=== PATIENT | male | born 1960 | race Two or more races ===

== ENCOUNTER → 2022-03-03 12:32 | Outpatient (BNVA) | payer MEDICAID, SELFPAY | PROVIDERS: PCP Registered Nurse Community Health; Visit Provider Surgery Vascular Surgery | DX: I73.9 Peripheral vascular disease, unspecified (principal); I83.11 Varicose veins of right lower extremity with inflammation | CPT/HCPCS: 99202 ==

== ENCOUNTER → 2022-03-16 13:19 | Outpatient (BNVA) | payer MEDICAID, SELFPAY | PROVIDERS: PCP Registered Nurse Community Health; Visit Provider Surgery | DX: K42.9 Umbilical hernia without obstruction or gangrene (principal) | CPT/HCPCS: 99202 ==

== ENCOUNTER → 2022-03-29 14:11 | Outpatient (BNVA) | payer MEDICAID, SELFPAY | PROVIDERS: PCP Registered Nurse Community Health; Referring Provider Registered Nurse Community Health; Visit Provider Nurse Practitioner | DX: Z01.818 Encounter for other preprocedural examination (principal) | CPT/HCPCS: 99202; 99212 ==

== ENCOUNTER → 2022-04-12 06:30 | Day surgery (SDC) | payer MEDICAID, SELFPAY ==
[2022-04-06 12:58] VITALS: BMI 29.0
--- NOTE | 2022-04-12 | ECG_ITS ---
Test Reason : PRE OP Blood Pressure : / mmHG Vent. Rate : 069 BPM Atrial Rate : 069 BPM P-R Int : 174 ms QRS Dur : 094 ms QT Int : 452 ms P-R-T Axes : 055 -22 036 degrees QTc Int : 484 ms Normal sinus rhythm Incomplete right bundle branch block Borderline ECG No previous ECGs available Referred By: Zion Pizarro Electronically Signed By:PHONG MCLAUGHLIN
[2022-04-12 07:52] VITALS: BP 124/80; PULSE 71; RESP 18; TEMP 36.2; O2SAT 95; BMI 27.4
[2022-04-12 08:05] VITALS: BMI 27.4
[2022-04-12 08:25] LABS: Amphetamine Screen Urine Not Detected (Not Detect); Barbiturates, Urine Not Detected (Not Detect); Benzodiazepines Screen Urine Not Detected (Not Detect); Cannabinoid Screen Urine Not Detected (Not Detect); Cocaine Screen Urine Not Detected (Not Detect); Fentanyl, urine POSITIVE (Not Detect); Opiate Screen Urine POSITIVE (Not Detect); Phencyclidine Screen Urine Not Detected (Not Detect)
[2022-04-12 08:48] LABS: Troponin-I High Sensitivity < 3.5 ng/L (<3.5-35.0)
== END ==
PROVIDERS: Anesthesiology; Visit Provider Surgery
DX: K42.9 Umbilical hernia without obstruction or gangrene (principal); Z53.8 Procedure and treatment not carried out for other reasons
CPT/HCPCS: 36415; 80307; 84484; 93005; J2795

== ENCOUNTER 2022-04-21 12:20 | Outpatient (REF) | payer MEDICAID, SELFPAY ==
--- NOTE | ~2022-04-21 | US_ITS ---
EXAMINATION: US JESSEE COMPLETE CLINICAL INFORMATION: PVD COMPARISON: Arterial duplex Doppler examination of same day. TECHNIQUE: Ankle brachial index FINDINGS: The right brachial artery has a systolic pressure of 101 mmHg with left brachial artery pressure being 111 mmHg. There are normal bilateral ankle waveforms present. Right posterior tibial artery pressure is 139 mmHg corresponding to an JESSEE of 1.25. The right dorsalis pedis pressure is 118 mmHg corresponding to an JESSEE of 1.06. Left posterior tibial artery pressure is 140 which corresponds to an JESSEE of 1.26. Dorsalis pedis artery pressure is 109 corresponding to a JESSEE of 0.98. US/US JESSEE complete IMPRESSION: Normal bilateral leg ABIs.
--- NOTE | ~2022-04-21 | US_ITS ---
EXAMINATION: US ARTERIAL DUPLEX LOWER EXTREMITY, BILATERAL CLINICAL INFORMATION: PVD COMPARISON: None TECHNIQUE: Real-time ultrasound and Doppler techniques (integrating B-mode 2D vascular images, Doppler spectral analysis and color flow Doppler imaging) were utilized to interrogate the bilateral lower extremities. FINDINGS: RIGHT LEG: Common Femoral Artery: Peak systolic velocity is 147 cm/s. There is a triphasic waveform present. Profunda Femoral Artery: Peak systolic velocity is 86 cm/s with a triphasic waveform. Proximal Superficial Femoral Artery: Peak systolic velocity is 135 cm/s with a triphasic waveform. MID SUPERFICIAL FEMORAL ARTERY: Peak systolic velocity is 115 cm/s with a triphasic waveform. Distal Superficial Femoral Artery: Peak systolic velocity measures 90 cm/s with a triphasic waveform. Popliteal Artery: Peak systolic velocity 79 cm/s with a triphasic waveform. Peroneal Artery: Peak systolic velocity is 98 cm/s with a monophasic waveform. Posterior Tibial Artery: Peak systolic velocity is 82 cm/s with a monophasic waveform. LEFT LOWER EXTREMITY: Common Femoral Artery: Peak systolic velocity is 153 cm/s with a triphasic waveform. Profunda Femoral Artery: Peak systolic velocity 75 cm/s with a triphasic waveform. Proximal Superficial Femoral Artery: Peak systolic velocity is 123 cm/s with a triphasic waveform. Mid Superficial Femoral Artery: Peak systolic velocity is 109 cm/s with a triphasic waveform. Distal Superficial Femoral Artery: Peak soft velocity of 94 cm/s with a triphasic waveform. Popliteal Artery: Peak systolic velocity of 90 cm/s with a triphasic waveform. Peroneal Artery: Peak systolic velocity of 119 cm/s with monophasic waveform. Posterior Tibial Artery: Peak systolic velocity of 85 cm/s with a monophasic waveform. US/US arterial duplex LE BI IMPRESSION: No significant plaque is identified and no regions of elevated peak systolic velocity. On the provided imaging, there is question of monophasic waveforms in the calf arteries however, this may be artifactual in nature with the visual appearance of the vessels and lack of velocity elevations distal to possible stenoses. There are normal ABIs present.
== END 2022-04-21 12:21 | disposition home or self-care (01) ==
LOC: HO.US 12:20
PROVIDERS: Visit Provider Surgery Vascular Surgery
DX: I73.9 Peripheral vascular disease, unspecified (principal)
CPT/HCPCS: 93923; 93925

== ENCOUNTER 2023-01-02 09:55 | Outpatient (REF) | payer MEDICAID, SELFPAY | END 2023-01-02 09:56 | disposition home or self-care (01) | LOC: HO.SH 09:55 | PROVIDERS: Visit Provider Registered Nurse | DX: Z01.118 Encounter for examination of ears and hearing with other abnormal findings (principal); H90.41 Sensorineural hearing loss, unilateral, right ear, with unrestricted hearing on the contralateral side | CPT/HCPCS: 92557; 92567 ==

== ENCOUNTER 2023-01-21 01:14 | Emergency (ER) | payer MEDICAID, SELFPAY ==
--- NOTE | ~2023-01-21 | XR_ITS ---
EXAMINATION: XR CHEST CLINICAL INFORMATION: Hypoxia COMPARISON: 03/07/2012 TECHNIQUE: 2 views of the chest were obtained. FINDINGS: Lung volumes are symmetric. Right-sided pleural thickening is suspected along with biapical scarring. No dense focal consolidation is seen. There is interstitial prominence bilaterally which may reflect vascular congestion and mild interstitial edema. No evidence of pneumothorax. The cardiomediastinal contour is unremarkable. No acute osseous findings are seen. XR/XR chest 2V IMPRESSION: Bilateral interstitial prominence suggesting congestion and mild interstitial edema. No dense focal consolidation. Right-sided pleural thickening suspected along with biapical scarring.
[2023-01-21 01:23] VITALS: BP 108/62; BP 109/67; PULSE 64; PULSE 74; RESP 14; TEMP 36.8; O2SAT 100; O2SAT 98; BMI 28.7
--- OUTSIDE RECORDS SUMMARY | 2023-01-21 01:37 | XMS_ITS | Continuity of Care Document ---
Author Name Unknown Organization [facility] Address [address] [place] [id number] Care Team Providers Care Darkroom Worker Name Role Phone Not on Staff, PCP Primary Care Physician Unavail able Encounter [facility] Date(s): 01/25/21 - 02/24/21 [facility] [address] [place] [id number] Allergies, Adverse Reactions, Alerts Substance Reaction Severity Status NKA Active Immunizations Given and Recorded Vaccine Date Status Refusal Reason influenza virus vaccine, inactivated 1 10/29/12 Gi usha Influenza Vaccine (oldterm) 2 08/30/07 Given tetanus-diphtheria toxoids (Td) 3 08/30/07 Given 1Admin Note: VIS dated 02/20/12 2Admin Note: VIS given in Mongolian 3Admin Note: VIS given in Mongolian Medications Cane See Instructions, 1, 0, 0, 10/24/07 10:24:11, USE FOR WALKING, GAIT DISTURBANCE, LEFT LEG PAIN, ADSOPPTHS Start Date: 10/24/07 Status: Ordered fluoxetine 20 mg oral capsule 1 capsule = 20 mg, By Mouth, Daily, # 30 capsule, 11 Refills, Maintenance, 12/04/14 14:32:12, Capsule, 1 capsule By Mouth Daily Start Date: 12/04/14 Status: Ordered Mapap 650mg, 0 Refills, Maintenance, 05/29/14 13:17:46 Start Date: 05/29/14 Status: Ordered meloxicam 15 mg oral tablet 1 tablet = 15 mg, By Mouth, Daily, For joint and back pain, # 30 tablet, 2 Refills, Maintenance, 12/04/14 14:34:19, Tablet, 1 tablet By Mouth Daily,x30 days,Instr:For joint and back pain Start Date: 12/04/14 Stop Date: 03/04/15 Status: Ordered NuLYTELY Lemon [place] oral powder for reconstitution 240 mL, By Mouth, Every 10 minutes, # 1 each, 0 Refills, Maintenance, 05/29/14 13:35:10, REC Powder, 240 mL By Mouth Every 10 minutes Start Date: 05/29/14 Status: Ordered Pain Reliever Plus 2 tablet, By Mouth, 3 times a day, PRN Pain , Mild, 500mg, 0 Refills, Maintenance, 05/29/14 13:18:18 Start Date: 05/29/14 Status: Ordered paroxetine 20 mg oral tablet 1 tablet = 20 mg, By Mouth, Daily, 0 Refills, Maintenance, 05/29/14 13:19:49 Start Date: 05/29/14 Status: Ordered paroxetine 30 mg oral tablet 1 tablet = 30 mg, By Mouth, Daily, 0 Refills, Maintenance, 05/29/14 13:19:15 Start Date: 05/29/14 Status: Ordered quetiapine 25 mg oral tablet 1 tablet = 25 mg, By Mouth, 2 times a day, 0 Refills, Maintenance, 05/29/14 13:20:25 Start Date: 05/29/14 Status: Ordered Seroquel 25 mg oral tablet 1 tablet = 25 mg, By Mouth, 2 times a day, # 60 tablet, 2 Refills, Maintenance, 12/04/14 14:33:04, Tablet, 1 tablet By Mouth 2 times a day,x30 days Start Date: 12/04/14 Stop Date: 03/04/15 Status: Ordered Tylenol Extra Strength 500 mg oral tablet 2 tablet = 1,000 mg, By Mouth, 3 times a day, PRN for pain, # 100 tablet, 0 Refills, Maintenance, 03/27/14 15:08:52, Tablet, 2 tablet By Mouth 3 times a day,PRN:for pain Start Date: 03/27/14 Status: Ordered Problem List Condition Effective Dates Status Health Status Inform ant Depression(Confirmed) Active Onychomycosis of lower ext(Confirmed) Active Social History Social History Type Response Smoking Status Current every day sarkis pepper; Type: Cigarettes entered on: 12/04/14 Sex
--- NOTE | 2023-01-21 01:40 | PC.NURSE ---
Patient received in bed with eyes open patient is AAOX4 at this time patient vitals are stable at this ttime patient is waiting to be seen by the doctor patient was given the call cordoba and encouraged to open up to staff if any issues should occur patient will continue to be monitored for safety
--- NOTE | 2023-01-21 01:55 | PC.NURSE ---
Patient was placed on 2 liters of oxygen nasal cannula due to patient was sating at the low 90's patient is currently now sating at 95%
--- NOTE | 2023-01-21 03:53 | ED_ITS ---
HPI - General Adult General Chief complaint: Extremity Injury, Lower Stated complaint: Sick Time Seen by Provider: 01/21/23 01:43 Source: patient and EMS Mode of arrival: EMS Limitations: no limitations History of Present Illness HPI narrative: 62-year-old male with history of varicose veins presents with left lower extremity wound bleeding. Patient scratched his left leg over varicosity. Subsequently, he had significant bleeding which was spewing blood. He had no pain. Denies any lightheadedness, chest pain or shortness of breath. Patient does smoke approximately 2 packs of cigarettes per day. He denies being on oxygen at home. He denies any chest pain, orthopnea, PND. He does have chronic lower extremity edema which is unchanged associated with redness and burning to the skin. Related Data Home Medications Medication Instructions Recorded Confirmed betamethasone dipropionate 0.05 % 1 appl topical BID 03/29/22 04/06/22 topical cream acetaminophen 500 mg tablet 500 mg PO Q6H PRN Pain 04/06/22 04/06/22 docusate sodium 100 mg capsule 100 mg PO DAILY 04/06/22 04/06/22 (Colace) methadone 10 mg/5 mL oral solution 60 mg PO DAILY 04/06/22 04/06/22 naloxone 4 mg/actuation nasal 4 mg intranasal Q2M PRN as directed 04/06/22 04/06/22 spray (Narcan) Previous Rx's Medication Instructions Recorded peg 3350-electrolytes 236 240 ml PO Q10M 1 day #4,000 mL 03/29/22 gram-22.74 gram-6.74 gram-5.86 gram solution (Golytely) Allergies Allergy/AdvReac Type Severity Reaction Status Date / Time No Known Allergies Allergy Unverified 04/06/22 12:40 [No Known Allergies*] Review of Systems Review of Systems: CONSTITUTIONAL: Denies weight loss, fever and chills. HEENT: Denies changes in vision and hearing. RESPIRATORY: Denies SOB and cough. CV: Denies palpitations no CP. GI: Denies abdominal pain, nausea, vomiting and diarrhea. : Denies dysuria and urinary frequency. MSK: Denies myalgia and joint pain. SKIN: Denies rash and pruritus. NEUROLOGICAL: Denies headache and syncope. PSYCHIATRIC: Denies recent changes in mood. Denies anxiety and depression. All other ROS are negative unless in HPI [facility] Past Medical History Medical History Back pain History of cocaine use History of heroin use Methadone dependence Nicotine dependence, cigarettes, uncomplicated PAD (peripheral artery disease) Umbilical hernia Surgical History No pertinent past surgical history Social History Social History Alcohol intake: never Patient Tobacco Use Status: Current everyday Tobacco user Tobacco use type: Cigarette Cigarette Packs Per Day: 2 Smoked in Last 30 Days: Yes Use of substances other than those prescribed or required for medical reasons: Yes Substance Use Type: Heroin Substance Use Frequency: Chronic Longstanding Last Used Substance: Unknown Any prior treatment program specific to substance use: No Advance Directives: No Advance Directives Information Provided: Yes Physical Exam ED Vital Signs: Vital Signs - 24 hr 01/21/23 01:23 01/21/23 01:23 Temperature 98.2 F 98.2 F Pulse Rate 64 64 Respiratory Rate 14 14 Blood Pressure 109/67 109/67 Pulse Oximetry 98 98 Oxygen Delivery Method Room Air Room Air BMI result Body Mass Index 28.7 GEN: Well developed, no acute distress, alert, oriented HEENT: Normocephalic, atraumatic, normal external ears, nose appears normal, no oropharyngeal edema or exudates Eyes: Normal to appearance Neck: Supple, no lymphadenopathy Respiratory: Talks in complete sentences, no respiratory distress, clear to auscultation bilaterally Cardiovascular: Regular rate and rhythm, no murmurs rubs or gallops Abdomen: Soft, nontender, nondistended, no guarding, no rebound Back: No CVA tenderness Extremities: No clubbing cyanosis positive edema with chronic stasis dermatitis and skin changes Neurologic: No focal neurologic deficits, cranial nerves 2-12 intact, strength is 5/5 bilaterally Skin: No rash evidence of a varicosity that is bleeding, no active bleeding Course Course Course Narrative: Patient presented with for an evaluation of a bleeding varicosity. Upon my evaluation, there is no active bleeding. I applied a pressure dressing to continue to provide for hemostasis. Patient was noted to be mildly hypoxic with an oxygen saturation of 88-94% on room air. On 2 L nasal cannula he increased to 96 98%. He denied any chest pain or shortness of breath. His pulmonary examination was otherwise unremarkable. I did perform a chest x-ray which showed a questionable vascular congestion. There are no large pleural effusions. At this point, I will withhold additional management of his pulmonary status and refer him to his primary care provider on Monday or Monday patient does have a long history of smoking approximately 2 packs cigarettes per day. Patient was given instructions in terms of managing varicosities. He will return for any worsening or concerning symptoms. Medical Decision Making Medical Decision Making MDM Narrative: Patient presented for bleeding varicosity. Upon my evaluation there is no active bleeding. A pressure dressing was applied. He does have chronic stasis dermatitis due to chronic peripheral edema. He was noted to have some mild hypoxia however he is a chronic smoker. I took him off of oxygen he maintained oxygen saturation of him anywhere from 88-94% on room air. He increased to 96% on oxygen. Chest x-ray will be ordered to make sure there is no evidence of CHF, pneumonia or other etiology of his hypoxia Differential Diagnosis Differential Diagnoses: The differential diagnosis associated with the presentation includes (Hypoxia: COPD, smoking, CHF, pneumonia wound: Bleeding varicosity) Independent Interpretation I performed an independent interpretation of an: Plain X-Ray (Possible mild vascular congestion) Prescription Management I considered prescription management with: Antibiotic Discharge Plan Discharge Clinical Impression: Bleeding from varicose vein, Hypoxia Patient Disposition: Home, Self-Care Instructions: Hypoxia (ED), Venous Insufficiency (DC) Prescriptions: No Action acetaminophen [Tylenol Ex Str Rapid Release] 500 mg Tablet 500 mg PO Q6H PRN (Reason: Pain) docusate sodium [Colace] 100 mg Capsule 100 mg PO DAILY naloxone [Narcan] 4 mg/actuation [place],Non-Aerosol 4 mg INTRANASAL Q2M PRN (Reason: as directed) Rx Instructions: spray 1 dose into ONE nostril; alternate nostrils w each dose until help arrives methadone 10 mg/5 mL Solution 60 mg PO DAILY Patient Comments: [facility]es to [facility] everyday peg 3350-electrolytes [Golytely] 236-22.74-6.74 -5.86 gram recon soln 240 ml PO Q10M 1 Days Qty: 4000 0RF Rx Instructions: until fecal effluent is clear; do not exceed a total volume of 2,000 mL betamethasone dipropionate 0.05 % cream 1 appl topical BID Referrals: [facility] [Primary Care Provider] - 3 days
== END 2023-01-21 04:25 | disposition home or self-care (01) ==
PROVIDERS: Emergency Provider Emergency Medicine
DX: I83.892 Varicose veins of left lower extremity with other complications (principal); R09.02 Hypoxemia; Z79.899 Other long term (current) drug therapy; F17.210 Nicotine dependence, cigarettes, uncomplicated; Z71.6 Tobacco abuse counseling
CPT/HCPCS: 71046; 99283; 99284

== ENCOUNTER 2023-01-23 09:45 | Outpatient (REF) | payer MEDICAID, SELFPAY ==
--- NOTE | ~2023-01-23 | XR_ITS ---
EXAMINATION: XR CHEST CLINICAL INFORMATION: Follow-up abnormal chest x-ray 2 days earlier COMPARISON: 01/21/2023 TECHNIQUE: 2 views of the chest were obtained. FINDINGS: There is no interval change in appearance of low lung volume and pleural thickening on the right as well as biapical scarring and prominent interstitial markings bilaterally. Cardiomediastinal silhouette is normal and there is no pleural effusion XR/XR chest 2V IMPRESSION: No interval change
== END 2023-01-23 09:46 | disposition home or self-care (01) ==
LOC: HO.HHCX 09:45
PROVIDERS: Visit Provider Emergency Medicine
DX: R93.89 Abnormal findings on diagnostic imaging of other specified body structures (principal)
CPT/HCPCS: 71046

== ENCOUNTER 2023-03-06 14:46 | Outpatient (REF) | payer MEDICAID, SELFPAY ==
--- NOTE | ~2023-03-06 | US_ITS ---
EXAMINATION: ANKLE-BRACHIAL INDICES SINGLE LEVEL PULSE VOLUME RECORDING ARTERIAL DUPLEX BILATERAL LEGS CLINICAL INFORMATION: Atherosclerosis of tel[place] arteries. COMPARISON: 04/21/2022. TECHNIQUE: Ankle-brachial indices and PVR at the ankle were obtained. Duplex Doppler of the bilateral lower extremity arterial systems was performed. FINDINGS: RIGHT: Ankle-brachial index: 1.32 PVR: Normal Common femoral: PSV 112 cm/s. Triphasic waveform. Deep femoral: PSV 81 cm/s. Triphasic waveform. Proximal superficial femoral: PSV 118 cm/s. Triphasic waveform. Mid superficial femoral: PSV 79 cm/s. Triphasic waveform. Distal superficial femoral: PSV 76 cm/s. Triphasic waveform. Popliteal: PSV 64 cm/s. Triphasic waveform. Posterior tibial: PSV 98 cm/s. Physiologic monophasic. Peroneal: PSV 81 cm/s. Physiologic monophasic. LEFT: Ankle-brachial index: 1.28 PVR: Normal Common femoral: PSV 112 cm/s. Triphasic waveform. Deep femoral: PSV 58 cm/s. Triphasic waveform. Proximal superficial femoral: PSV 110 cm/s. Triphasic waveform. Mid superficial femoral: PSV 88 cm/s. Triphasic waveform. Distal superficial femoral: PSV 68 cm/s. Triphasic waveform. Popliteal: PSV 70 cm/s. Triphasic waveform. Posterior tibial: PSV 105 cm/s. Physiologic monophasic. Peroneal: PSV 58 cm/s. Triphasic. US/US JESSEE complete IMPRESSION: No evidence of hemodynamically significant peripheral arterial disease.
--- NOTE | ~2023-03-06 | US_ITS ---
EXAMINATION: ANKLE-BRACHIAL INDICES SINGLE LEVEL PULSE VOLUME RECORDING ARTERIAL DUPLEX BILATERAL LEGS CLINICAL INFORMATION: Atherosclerosis of [place] arteries. COMPARISON: 04/21/2022. TECHNIQUE: Ankle-brachial indices and PVR at the ankle were obtained. Duplex Doppler of the bilateral lower extremity arterial systems was performed. FINDINGS: RIGHT: Ankle-brachial index: 1.32 PVR: Normal Common femoral: PSV 112 cm/s. Triphasic waveform. Deep femoral: PSV 81 cm/s. Triphasic waveform. Proximal superficial femoral: PSV 118 cm/s. Triphasic waveform. Mid superficial femoral: PSV 79 cm/s. Triphasic waveform. Distal superficial femoral: PSV 76 cm/s. Triphasic waveform. Popliteal: PSV 64 cm/s. Triphasic waveform. Posterior tibial: PSV 98 cm/s. Physiologic monophasic. Peroneal: PSV 81 cm/s. Physiologic monophasic. LEFT: Ankle-brachial index: 1.28 PVR: Normal Common femoral: PSV 112 cm/s. Triphasic waveform. Deep femoral: PSV 58 cm/s. Triphasic waveform. Proximal superficial femoral: PSV 110 cm/s. Triphasic waveform. Mid superficial femoral: PSV 88 cm/s. Triphasic waveform. Distal superficial femoral: PSV 68 cm/s. Triphasic waveform. Popliteal: PSV 70 cm/s. Triphasic waveform. Posterior tibial: PSV 105 cm/s. Physiologic monophasic. Peroneal: PSV 58 cm/s. Triphasic. US/US arterial duplex LE BI IMPRESSION: No evidence of hemodynamically significant peripheral arterial disease.
== END 2023-03-06 14:47 | disposition home or self-care (01) ==
LOC: HO.US 14:46
PROVIDERS: PCP Registered Nurse; Visit Provider Surgery Vascular Surgery
DX: I70.213 Atherosclerosis of native arteries of extremities with intermittent claudication, bilateral legs (principal)
CPT/HCPCS: 93923; 93925

== ENCOUNTER 2023-03-15 10:03 | Outpatient (AMB) | payer MEDICAID, SELFPAY ==
--- NOTE | 2023-03-15 10:05 | A.OFFVIS_ITS ---
Intake Vital Signs 03/15/23 10:12 Height 5 ft 6 in Weight 188 lb BMI 30.3 BP 120/77 Blood Pressure Location Lt brachial Position Standing Pulse 79 Intake Visit Reasons: Umbilical hernia repair, rediscuss Intake Note: This patient presents for an assessment to rediscuss umbilical hernia repair. Patient c/o; bulge, denies pain or discomfort, ? diastasis recti Lubricator Granulator Required: No Accompanied by: Family/Other Allergies No Known Allergies [No Known Allergies*] Allergy (Unverified 03/15/23 10:14) Medication List - Last Reconciled 03/15/23 by Gabriel Cisneros MD acetaminophen 500 mg PO Q6H PRN betamethasone dipropionate 0.05% 1 appl topical BID docusate sodium (Colace) 100 mg PO DAILY methadone 60 mg PO DAILY naloxone 4 mg/actuation (Narcan) 4 mg intranasal Q2M PRN peg 3350-electrolytes 236-22.74-6.74 -5.86 gram (Golytely) 240 mL PO Q10M 1 day HPI Umbilical hernia repair, rediscuss HPI Details 82-year-old male here for an umbilical hernia. I had actually seen him last February, for this same problem. I had scheduled him for hernia repair at that time but apparently did not push through with this. He says that he is ready to reschedule this time. He has had this umbilical hernia for over 3 years now. He denies any GI complaints. He does state that this hernia seems to be bigger in size. He admits to drug use with heroin. [facility] Medical History Back pain History of cocaine use History of heroin use Methadone dependence Nicotine dependence, cigarettes, uncomplicated PAD (peripheral artery disease) Umbilical hernia Surgical History No pertinent past surgical history Social History Alcohol intake: never Patient Tobacco Use Status: Current everyday Tobacco user Tobacco use type: Cigarette Cigarette Packs Per Day: 2 Substance Use Type: Heroin Review of Systems Const Denies chills and Denies fever(s) Card Denies chest pain, Denies dyspnea and Denies dyspnea on exertion Resp Denies cough, Denies dyspnea and Denies dyspnea on exertion GI Denies hematochezia and Denies change in bowel habits Denies hematuria and Denies difficulty urinating Musc Denies back pain and Denies limited range of motion Neuro Denies focal weakness and Denies convulsions Psych Denies depression and Denies mood swings Physical Exam Const General: comfortable and no acute distress Orientation/consciousness: patient oriented x3 Neck Neck: Yes no lymphadenopathy Resp Auscultation: clear to auscultation bilaterally Cardio Rhythm: regular rhythm GI Other: Umbilical hernia, partially reducible, about 3 cm in size, nontender Palpation (GI): Soft to palpation, nontender and no guarding Neuro General: patient oriented x3 Assessment & Plan Assessment & Plan (1) Umbilical hernia: Code(s): K42.9 - Umbilical hernia without obstruction or gangrene Plan: He says that he is now ready to proceed with umbilical hernia repair with possible mesh. I reviewed with him the technique of this procedure. I explained the risks including but not limited to bleeding, infections, bowel injury, recurrence, postop pain, inherent risks of anesthesia including respiratory failure, IL, as well as the benefits and alternatives. He wants to proceed I also explained to him what to expect postoperatively. He admits to snorting heroin, and he says that he plans on stopping this so can proceed with surgery. Coding Level of Care Code Est Pt Level 3 (74352) Diagnoses Umbilical hernia K42.9
[2023-03-15 10:12] VITALS: BP 120/77; PULSE 79; BMI 30.3
== END 2023-03-15 10:26 | disposition home or self-care (01) ==
PROVIDERS: PCP Registered Nurse; Visit Provider Surgery
DX: K42.9 Umbilical hernia without obstruction or gangrene (principal)
CPT/HCPCS: 99213

== ENCOUNTER → 2023-03-15 10:03 | Outpatient (BNVA) | payer MEDICAID, SELFPAY | PROVIDERS: PCP Registered Nurse; Visit Provider Surgery | DX: K42.9 Umbilical hernia without obstruction or gangrene (principal) | CPT/HCPCS: 99212 ==